=== PATIENT | male | born 1990 | race Caucasian/White ===

== ENCOUNTER 2019-11-20 11:43 | Emergency (ER) | payer OTHER ==
[~2019-11-20] VITALS: Ht 165.1 cm; Wt 84.4 kg
[2019-11-20 12:00] VITALS: Ht 165.1 cm; Wt 84.4 kg
[2019-11-20 15:24] VITALS: BP 119/80
== END 2019-11-20 13:00 | disposition home or self-care (01) ==
LOC: ED 11:43
DX: H10.9 Unspecified conjunctivitis (principal)